=== PATIENT | female | born 1990 | race Caucasian/White ===

== ENCOUNTER 2016-08-07 07:03 | Emergency (ER) | payer OTHER ==
[2016-08-07 07:12] VITALS: BP 131/69; PULSE 84; RESP 18; TEMP 98.2; O2SAT 98
[2016-08-07] MEDS ORDERED: PHENAZOPYRIDINE HCL 200 MG TAB PO ONE (07:14)
[2016-08-07 07:26] LABS: COLOR YELLOW; LEUKOCYTE ESTERASE,URINE 1+ (NEGATIVE); NITRITE,URINE NEGATIVE (NEGATIVE)
--- NOTE | 2016-08-07 07:28 | UCPHY ---
H & P Patient Type: New HPI/ROS: This patient complains of UTI symptoms. She describes onset of dysuria, frequency and urgency starting at 5:00 a.m. this morning. Symptoms are moderate in intensity. She notes no exacerbating or alleviating factors. ROS: No fevers or chills. HEENT: Currently has coryza for 4 days that feels consistent with a minor cold to the patient. No other HEENT complaints. Pulmonary: Mild cough that she attributes to postnasal drip. No shortness of breath or pleuritic pain. : No back/kidney pain no hematuria. Last menstrual. Normal timing. GI: No vomiting 7 point ROS is otherwise negative. Past Medical/Surgical History: Otherwise healthy Social History: Currently a University student Smoking Status: Never smoked Physical Exam: General Appearance: Alert, no distress. Eyes: Pupils equal and round no pallor or injection. ENT, Mouth: Mucous membranes moist. Nose: Clear discharge. Oropharynx: Clear with no erythema Respiratory: There are no retractions, lungs are clear to auscultation. Cardiovascular: Regular rate and rhythm. Gastrointestinal: Mild suprapubic tenderness with no guarding or rebound. Back: No CVA tenderness Neurological: Alert and oriented with no focal deficits. Skin: Warm and dry, no rashes. Psychiatric: Mood and affect normal DIFFERENTIAL DIAGNOSIS: After history and physical exam differential diagnosis was considered for cystitis, pyelonephritis, I viral URI, seasonal allergies Constitutional: Initial Vital Signs Temperature (C) 36.8 C 08/07/16 07:09 Heart Rate 84 08/07/16 07:09 Respiratory Rate 18 08/07/16 07:09 Blood Pressure 131/69 H 08/07/16 07:09 O2 Sat (%) 98 08/07/16 07:09 O2 Delivery Mode Room Air Allergies/Adverse Reactions: No Known Allergies Allergy (Unverified 08/07/16 07:12) Home Medications: Medication Instructions Recorded Cephalexin [Keflex (*)] 500 mg PO TID #21 cap 08/07/16 Phenazopyridine HCl [Pyridium] 200 mg PO TID PRN #6 tab 08/07/16 MDM/Departure - MDM Medications Given: Discontinued Medications Phenazopyridine HCl (Pyridium) 200 mg PO EDNOW ONE Stop: 08/07/16 07:15 Last Admin: 08/07/16 07:18 Dose: 200 mg ED Course/Re-evaluation: Patient developed some nausea treated with Zofran with relief. I counseled her regarding her positive urinalysis consistent with cystitis in this patient. - Depart Disposition: Home, Routine, Self-Care Clinical Impression: Cystitis Condition: Good Instructions: Urinary Tract Infection in Women (ED) Additional Instructions: Diagnosis: Cystitis Plan: Drink plenty fluids Keflex antibiotic Peridium if needed for burning with urination Return for any significant worsening despite the treatment plan Prescriptions: Cephalexin [Keflex (*)] 500 mg PO TID #21 cap Phenazopyridine HCl [Pyridium] 200 mg PO TID PRN #6 tab PRN Reason: dysuria Referrals: NONE *PRIMARY CARE P,. [Unknown] - As per Instructions - PQRS PQRS Measurement: NA
[2016-08-07 07:36] LABS: BACTERIA TRACE /hpf (NONE SEEN); YEAST OCCASIONAL /hpf (NONE SEEN)
[2016-08-07] MEDS ORDERED: CEPHALEXIN 500 MG CAP PO ONE (07:45)
[2016-08-07] MEDS ORDERED: ONDANSETRON DISINTEGRATING 4 MG TAB ONE (07:51)
[2016-08-07] MEDS ORDERED: ONDANSETRON DISINTEGRATING 4 MG TAB PO ONE (07:51)
== END 2016-08-07 07:51 | disposition home or self-care (01) ==
LOC: CED 07:03
DX: N30.00 Acute cystitis without hematuria (principal)
CPT/HCPCS: 81003-PO; 81015-PO; 99203-PO; G0463-PO